=== PATIENT | female | born 1995 | race American Indian/Alaskan Native ===

== ENCOUNTER 2018-05-03 19:39 | Emergency (ER) | payer MEDICAID ==
[2018-05-03 20:21] VITALS: BP 127/72
[2018-05-03 21:01] LABS: Basophils % (Auto) 0.6 % (0.0-1.8); Eosinophils # (Auto) 0.1 K/mm3 (0.0-0.4); Eosinophils % (Auto) 1.5 % (0.0-4.3); Hematocrit 33.5 % (30.3-42.9); Hemoglobin 10.7 gm/dl (10.1-14.3); Lymphocytes # (Auto) 3.8 K/mm3 (1.2-5.4); Mean Corpuscular HGB Conc 32 % (30-34); Mean Corpuscular Volume 76 fl (79-97); Monocytes # (Auto) 0.5 K/mm3 (0.0-0.8); Monocytes % (Auto) 7.5 % (0.0-7.3); Platelet Count 360 K/mm3 (140-440); Red Blood Count 4.43 M/mm3 (3.65-5.03); Red Cell Distribution Width 16.5 % (13.2-15.2)
[2018-05-03 21:04] LABS: Mean Corpuscular Hemoglobin 24 pg (28-32)
--- NOTE | 2018-05-03 21:29 | Emergency Department Report ---
ED Female HPI - General Chief complaint: Vaginal Bleeding Stated complaint: POSSIBLE MISCARRIAGE Time Seen by Provider: 05/03/18 21:09 Source: patient Mode of arrival: Ambulatory Limitations: No Limitations - History of Present Illness Initial comments: Had a gush of vaginal blood 24 hours ago. has had RUQ abd pain and low bilateral back pain ever since. Hasn't had anymore vaginal bleeding. She called her PCP who told her to go to the ER b/c she could be . Pt hasn't taken a test yet. Currently on the depo shot. Has been once before and had successful term . - Related Data Home Medications Medication Instructions Recorded Confirmed Last Taken Pnv 29-1 Tablet 1 tab PO DAILY 01/16/18 01/17/18 1 Week Ago ~01/09/18 Previous Rx's Medication Instructions Recorded Last Taken Type Docusate Sodium [Colace] 100 mg PO BID PRN #60 capsule 01/18/18 Unknown Rx Ferrous Sulfate [Feosol 325 MG tab] 325 mg PO BID #60 tablet 01/18/18 Unknown Rx HYDROcodone/ACETAMINOPHEN [[place] 1 each PO Q6H #40 tablet 01/18/18 Unknown Rx 5-325 Tablet] Ibuprofen [Motrin] 600 mg PO Q8H PRN #40 tablet 01/18/18 Unknown Rx Allergies Allergy/AdvReac Type Severity Reaction Status Date / Time No Known Allergies Allergy Unverified 01/16/18 21:16 ED Review of Systems ROS: Stated complaint: POSSIBLE MISCARRIAGE Other details as noted in HPI Comment: All other systems reviewed and negative Gastrointestinal: abdominal pain, nausea Genitourinary: abnormal menses Musculoskeletal: back pain ED Past Medical Hx - Past Medical History Previous Medical History?: No Hx Hypertension: No Hx Congestive Heart Failure: No Hx Diabetes: No Hx Deep Vein Thrombosis: No Hx Renal Disease: No Hx Sickle Cell Disease: No Hx Seizures: No Hx Asthma: No Hx COPD: No Hx HIV: No - Surgical History Past Surgical History?: No - Social History Smoking Status: Never Smoker Substance Use Type: None - Medications Home Medications: Home Medications Medication Instructions Recorded Confirmed Last Taken Type Pnv 29-1 Tablet 1 tab PO DAILY 01/16/18 01/17/18 1 Week Ago History ~01/09/18 Docusate Sodium [Colace] 100 mg PO BID PRN #60 capsule 01/18/18 Unknown Rx Ferrous Sulfate [Feosol 325 MG tab] 325 mg PO BID #60 tablet 01/18/18 Unknown Rx HYDROcodone/ACETAMINOPHEN [[place] 1 each PO Q6H #40 tablet 01/18/18 Unknown Rx 5-325 Tablet] Ibuprofen [Motrin] 600 mg PO Q8H PRN #40 tablet 01/18/18 Unknown Rx ED Physical Exam - General Limitations: No Limitations General appearance: alert, in no apparent distress - Head Head exam: Present: atraumatic, normocephalic - Eye Eye exam: Present: normal appearance - ENT ENT exam: Present: mucous membranes moist - Neck Neck exam: Present: normal inspection - Respiratory Respiratory exam: Present: normal lung sounds bilaterally. Absent: respiratory distress - Cardiovascular Cardiovascular Exam: Present: regular rate, normal rhythm. Absent: systolic murmur, diastolic murmur, rubs, gallop - GI/Abdominal GI/Abdominal exam: Present: soft, tenderness (RUQ), guarding (voluntary), normal bowel sounds. Absent: rebound, rigid - Extremities Exam Extremities exam: Present: normal inspection - Back Exam Back exam: Present: normal inspection - Neurological Exam Neurological exam: Present: alert, oriented X3 - Psychiatric Psychiatric exam: Present: normal affect, normal mood - Skin Skin exam: Present: warm, dry, intact, normal color. Absent: rash ED Course Vital Signs 05/03/18 05/03/18 20:13 20:31 Temperature 98.3 F 98.3 F Pulse Rate 96 H 94 H Respiratory 18 18 Rate Blood Pressure 127/72 127/72 O2 Sat by Pulse 100 100 Oximetry ED Medical Decision Making - Lab Data Result diagrams: 05/03/18 20:41 05/03/18 20:41 - Radiology Data Radiology results: report reviewed - Medical Decision Making 22 yo female that p/w abd pain and concerns for vaginal bleeding. VSS. Pt is well appearing. test is neg. I don't believe that the patient was ever . Given no vaginal bleeding presently, pt wants to wait on the pelvic exam. I felt that this was appropriate since she is not having any vaginal discharge. Lab work and urinalysis are negative. Right upper quadrant ultrasound shows no acute abnormalities. Patient was given a GI cocktail, which resolved her symptoms. Presentation is likely related to GERD versus gastritis. Patient endorses eating a lot of spicy food. I discussed dietary changes with her. - Differential Diagnosis PE, cholecystitis, uti, pid, ectopic, iup, gerd, gastritis, hepatitis, pyel Critical care attestation.: If time is entered above; I have spent that time in minutes in the direct care of this critically ill patient, excluding procedure time. ED Disposition Clinical Impression: Gastritis Disposition: DC- TO HOME OR SELFCARE Is pt being admited?: No Does the pt Need Aspirin: No Condition: Stable Instructions: Gastritis (ED), Diet for Ulcers and Gastritis (ED) Additional Instructions: If you have this pain again, you can take Maalox, which is purchased over the counter, to see if it will stop your pain. If you have these episodes more than a couple of times a week, you should start taking a daily pepcid for acid reflux , which is also over the counter. Referrals: PRIMARY CARE, [Primary Care Provider] - 3-5 Days [facility] [Outside] - 3-5 Days
[2018-05-03 23:04] LABS: Alanine Aminotransferase 21 units/L (7-56); Albumin 4.6 g/dL (3.9-5); BUN/Creatinine Ratio 20; Blood Urea Nitrogen 12 mg/dL (7-17); Calcium 9.5 mg/dL (8.4-10.2); Hemolysis Index 14
[2018-05-03] MEDS ORDERED: ALUM-MAG HYDROX-SIMETH 200-200-20MG/5ML PO ONE (23:06)
[2018-05-03] MEDS ORDERED: LIDOCAINE VISCOUS 2% PO ONE (23:06)
[2018-05-03 23:16] LABS: Bilirubin,Urine NEG (Negative); Blood,Urine NEG (Negative); Color,Urine Yellow (Yellow); Mucus,Urine 3+ /HPF; Protein,Urine <15 mg/dL mg/dL (Negative); Urobilinogen,Urine < 2.0 mg/dL (<2.0)
--- NOTE | 2018-05-03 23:47 | Ultrasound Report ---
FINAL REPORT PROCEDURE: US ABDOMEN LIMITED TECHNIQUE: Real-time sonography was performed of the with image documentation. CPT 44832 HISTORY: RUQ abd pain, +murphys COMPARISON: No prior studies are available for comparison. FINDINGS: Visualized pancreatic head and body and liver demonstrate normal echotexture without focal lesions. Visualized right kidney is unremarkable and measures 9.5 by 4 x 5 centimeters demonstrating normal echotexture without hydronephrosis. Gallbladder is well distended with normal outlines are normal wall thickness without calculi or pericholecystic collections. Common duct is 4 millimeters in caliber. Portal vein is patent.. IMPRESSION: Unremarkable ultrasound right upper quadrant.
== END 2018-05-03 23:52 | disposition home or self-care (01) ==
LOC: ED 19:39
DX: K29.70 Gastritis, unspecified, without bleeding (principal)
CPT/HCPCS: 36415; 76705; 80053; 81001; 84702; 85025; 86850; 86900; 86901

== ENCOUNTER 2018-11-28 08:39 | Emergency (ER) | payer SELFPAY ==
--- NOTE | 2018-11-28 11:24 | Emergency Department Report ---
ED Female HPI - General Chief complaint: Urogenital-Female Stated complaint: VAGINAL IRRITATION Time Seen by Provider: 11/28/18 11:08 Source: patient Mode of arrival: Ambulatory Limitations: No Limitations - History of Present Illness Initial comments: 22-year-old female presents to ED with complaint of dysuria. Patient states 2 weeks ago she was seen in an outside ER for "vaginal irritation "and was diagnosed with Trichomonas and a bacterial infection. She states she took antibiotics for 7 days, which then lead to a yeast infection. She went back and was given medication for yeast infection, is now having dysuria. Patient reports small amount of discharge yesterday, however none today. She denies urinary frequency. Patient says she does not believe she was treated for gonorrhea and chlamydia to her previous ED visit. MD Complaint: dysuria -: days(s) (4) Radiation: non-radiating Severity: mild Quality: burning Consistency: intermittent Improves with: none Worsens with: urination Are you Now?: No - Related Data Home Medications Medication Instructions Recorded Confirmed Last Taken Pnv 29-1 Tablet 1 tab PO DAILY 01/16/18 01/17/18 1 Week Ago ~01/09/18 Previous Rx's Medication Instructions Recorded Last Taken Type Docusate Sodium [Colace] 100 mg PO BID PRN #60 capsule 01/18/18 Unknown Rx Ferrous Sulfate [Feosol 325 MG tab] 325 mg PO BID #60 tablet 01/18/18 Unknown Rx HYDROcodone/ACETAMINOPHEN [[place] 1 each PO Q6H #40 tablet 01/18/18 Unknown Rx 5-325 Tablet] Ibuprofen [Motrin] 600 mg PO Q8H PRN #40 tablet 01/18/18 Unknown Rx Allergies Allergy/AdvReac Type Severity Reaction Status Date / Time No Known Allergies Allergy Verified 11/28/18 08:41 ED Review of Systems ROS: Stated complaint: VAGINAL IRRITATION Other details as noted in HPI Comment: All other systems reviewed and negative Constitutional: denies: chills, fever Gastrointestinal: denies: abdominal pain Genitourinary: dysuria, discharge. denies: urgency, frequency, hematuria ED Past Medical Hx - Past Medical History Hx Hypertension: No Hx Congestive Heart Failure: No Hx Diabetes: No Hx Deep Vein Thrombosis: No Hx Renal Disease: No Hx Sickle Cell Disease: No Hx Seizures: No Hx Asthma: No Hx COPD: No Hx HIV: No - Social History Smoking Status: Never Smoker Substance Use Type: None - Medications Home Medications: Home Medications Medication Instructions Recorded Confirmed Last Taken Type Pnv 29-1 Tablet 1 tab PO DAILY 01/16/18 01/17/18 1 Week Ago History ~01/09/18 Docusate Sodium [Colace] 100 mg PO BID PRN #60 capsule 01/18/18 Unknown Rx Ferrous Sulfate [Feosol 325 MG tab] 325 mg PO BID #60 tablet 01/18/18 Unknown Rx HYDROcodone/ACETAMINOPHEN [[place] 1 each PO Q6H #40 tablet 01/18/18 Unknown Rx 5-325 Tablet] Ibuprofen [Motrin] 600 mg PO Q8H PRN #40 tablet 01/18/18 Unknown Rx ED Physical Exam - General Limitations: No Limitations General appearance: alert, in no apparent distress - Head Head exam: Present: atraumatic, normocephalic - Eye Eye exam: Present: normal appearance - ENT ENT exam: Present: mucous membranes moist - Neck Neck exam: Present: normal inspection - Respiratory Respiratory exam: Present: normal lung sounds bilaterally. Absent: respiratory distress - Cardiovascular Cardiovascular Exam: Present: regular rate, normal rhythm - GI/Abdominal GI/Abdominal exam: Present: soft. Absent: distended, tenderness - External exam: Present: normal external exam Speculum exam: Present: normal speculum exam. Absent: vaginal discharge, cervical discharge Bi-manual exam: Present: normal bi-manual exam. Absent: cervical motion tendernes - Extremities Exam Extremities exam: Present: normal inspection - Neurological Exam Neurological exam: Present: alert, oriented X3 - Psychiatric Psychiatric exam: Present: normal affect, normal mood - Skin Skin exam: Present: warm, dry, intact, normal color ED Course Vital Signs 11/28/18 08:59 Temperature 98.2 F Pulse Rate 88 Respiratory 14 Rate Blood Pressure 117/45 [Right] O2 Sat by Pulse 99 Oximetry ED Medical Decision Making - Medical Decision Making UA negative for UTI. Patient treated for BV last week. Wet prep shows > or =20% clue cells, but exam showed barely any discharge. Will not place pt on another 7-day course of flagyl, chandra since she then had to be treated for yeast infection afterward. Will treat empirically for GC/ Chlam. 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 - Differential Diagnosis GC, chlamydia, UTI Critical care attestation.: If time is entered above; I have spent that time in minutes in the direct care of this critically ill patient, excluding procedure time. ED Disposition Clinical Impression: Cervicitis Disposition: DC-01 TO HOME OR SELFCARE Is pt being admited?: No Condition: Stable Instructions: Cervicitis (ED) [facility]Primary Care Provider[facility] - 3-5 Days [facility] [Provider Group] - 3-5 Days Forms: STI Treatment and Prevention Time of Disposition: 12:43
[2018-11-28 12:41] LABS: Bilirubin,Urine NEG (Negative); Blood,Urine SM (Negative); Color,Urine Yellow (Yellow); Mucus,Urine 3+ /HPF; Protein,Urine <15 mg/dL mg/dL (Negative); Urobilinogen,Urine < 2.0 mg/dL (<2.0)
[2018-11-28] MEDS ORDERED: ROCEPHIN IM ONE (12:41)
[2018-11-28] MEDS ORDERED: ZITHROMAX PO ONE (12:41)
[2018-11-28] MEDS ORDERED: XYLOCAINE 1% MPF 5 mL INFILTRATI ONE (12:41)
[2018-11-28 12:43] LABS: HCG Qualitative,Urine Negative (Negative)
[2018-11-28] MEDS ORDERED: ZOFRAN ODT ONE (13:03)
[2018-11-28] MEDS ORDERED: ZOFRAN ODT PO ONE (13:10)
[2018-11-28 13:24] VITALS: BP 118/75
== END 2018-11-28 13:23 | disposition home or self-care (01) ==
LOC: ED 08:39
DX: N72 Inflammatory disease of cervix uteri (principal); A59.9 Trichomoniasis, unspecified
CPT/HCPCS: 81001; 81025; 87210; 87591; 96372; 99283; J0696; Q0162

== ENCOUNTER 2019-03-24 22:51 | Emergency (ER) | payer OTHER ==
--- NOTE | 2019-03-25 02:01 | Emergency Department Report ---
ED Female HPI - General Chief complaint: Urogenital-Female Stated complaint: VAGINAL IRRITATION Time Seen by Provider: 03/25/19 01:54 Source: patient Mode of arrival: Ambulatory Limitations: No Limitations - History of Present Illness Initial comments: pt is a 23 y/o aaf who presents for vaginal irritation x 1 week denies vaginal discharge no fever no chills no n/v . MD Complaint: dysuria, other (vaginal irritation) Onset/Timin -: days(s) (2) Radiation: non-radiating Severity: moderate Severity scale (0 -10): 3 Quality: cramping Consistency: intermittent Improves with: none Worsens with: none Are you Now?: Yes Last Menstrual Period: 02/19/19 EDC: 11/26/19 Associated Symptoms: abdominal pain, nausea/vomiting - Related Data Sexually active: Yes : 0 Para: 0 A: 0 Home Medications Medication Instructions Recorded Confirmed Last Taken Pnv 29-1 Tablet 1 tab PO DAILY 01/16/18 01/17/18 1 Week Ago ~01/09/18 Previous Rx's Medication Instructions Recorded Last Taken Type Docusate Sodium [Colace] 100 mg PO BID PRN #60 capsule 01/18/18 Unknown Rx Ferrous Sulfate [Feosol 325 MG tab] 325 mg PO BID #60 tablet 01/18/18 Unknown Rx HYDROcodone/ACETAMINOPHEN [[place] 1 each PO Q6H #40 tablet 01/18/18 Unknown Rx 5-325 Tablet] Ibuprofen [Motrin] 600 mg PO Q8H PRN #40 tablet 01/18/18 Unknown Rx metroNIDAZOLE [Flagyl] 500 mg PO Q12HR 10 Days #20 tab 03/25/19 Unknown Rx Allergies Allergy/AdvReac Type Severity Reaction Status Date / Time No Known Allergies Allergy Verified 11/28/18 08:41 ED Review of Systems ROS: Stated complaint: VAGINAL IRRITATION Other details as noted in HPI Constitutional: denies: chills, fever Eyes: denies: eye pain, eye discharge, vision change ENT: denies: ear pain, throat pain Respiratory: denies: cough, shortness of breath, wheezing Cardiovascular: denies: chest pain, palpitations Endocrine: no symptoms reported Gastrointestinal: denies: abdominal pain, nausea, diarrhea Genitourinary: urgency, discharge, abnormal menses. denies: dysuria, frequency, hematuria, dyspareunia Musculoskeletal: denies: back pain, joint swelling, arthralgia, myalgia Skin: denies: rash, lesions Neurological: denies: headache, weakness, paresthesias, vertigo Psychiatric: denies: anxiety, depression Hematological/Lymphatic: denies: easy bleeding, easy bruising ED Past Medical Hx - Past Medical History Previous Medical History?: No Hx Hypertension: No Hx Congestive Heart Failure: No Hx Diabetes: No Hx Deep Vein Thrombosis: No Hx Renal Disease: No Hx Sickle Cell Disease: No Hx Seizures: No Hx Asthma: No Hx COPD: No Hx HIV: No - Surgical History Past Surgical History?: No - Social History Smoking Status: Never Smoker Substance Use Type: None - Medications Home Medications: Home Medications Medication Instructions Recorded Confirmed Last Taken Type Pnv 29-1 Tablet 1 tab PO DAILY 01/16/18 01/17/18 1 Week Ago History ~01/09/18 Docusate Sodium [Colace] 100 mg PO BID PRN #60 capsule 01/18/18 Unknown Rx Ferrous Sulfate [Feosol 325 MG tab] 325 mg PO BID #60 tablet 01/18/18 Unknown Rx HYDROcodone/ACETAMINOPHEN [[place] 1 each PO Q6H #40 tablet 01/18/18 Unknown Rx 5-325 Tablet] Ibuprofen [Motrin] 600 mg PO Q8H PRN #40 tablet 01/18/18 Unknown Rx metroNIDAZOLE [Flagyl] 500 mg PO Q12HR 10 Days #20 tab 03/25/19 Unknown Rx ED Physical Exam - General Limitations: No Limitations General appearance: alert, in no apparent distress - Head Head exam: Present: atraumatic, normocephalic - Eye Eye exam: Present: normal appearance, PERRL, EOMI Pupils: Present: normal accommodation - ENT ENT exam: Present: mucous membranes moist - Neck Neck exam: Present: normal inspection, full ROM - Respiratory Respiratory exam: Present: normal lung sounds bilaterally, wheezes, chest wall tenderness. Absent: respiratory distress - Cardiovascular Cardiovascular Exam: Present: regular rate, normal rhythm, normal heart sounds. Absent: systolic murmur, diastolic murmur, rubs, gallop - GI/Abdominal GI/Abdominal exam: Present: soft, normal bowel sounds. Absent: distended, tenderness, guarding, rebound, rigid, bruit, hernia - Rectal Rectal exam: Present: deferred - External exam: Present: normal external exam. Absent: erythema, swelling, lesions, lacerations, ecchymosis, bleeding Speculum exam: Present: erythema, vaginal discharge (white thick malodorous ). Absent: cervical discharge, vaginal bleeding, foreign body, tissue, laceration - Extremities Exam Extremities exam: Present: normal inspection, full ROM, normal capillary refill. Absent: tenderness, pedal edema, joint swelling, calf tenderness - Back Exam Back exam: Present: normal inspection. Absent: full ROM, tenderness, CVA tenderness (R), CVA tenderness (L), muscle spasm, paraspinal tenderness, vertebral tenderness, rash noted - Neurological Exam Neurological exam: Present: alert, oriented X3, CN II-XII intact, normal gait, reflexes normal - Psychiatric Psychiatric exam: Present: normal affect, normal mood - Skin Skin exam: Present: warm, dry, intact, normal color. 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 Critical care attestation.: If time is entered above; I have spent that time in minutes in the direct care of this critically ill patient, excluding procedure time. ED Disposition Clinical Impression: Bacterial vaginosis Disposition: DC-01 TO HOME OR SELFCARE Is pt being admited?: No Does the pt Need Aspirin: No Condition: Stable Instructions: Bacterial Vaginosis (ED) Prescriptions: metroNIDAZOLE [Flagyl] 500 mg PO Q12HR 10 Days #20 tab Referrals: NASIM KHALIL MD [Staff Physician] - 3-5 Days Forms: Work/School Release Form(ED) Time of Disposition: 03:14
[2019-03-25 02:48] VITALS: BP 115/88
[2019-03-25 03:13] LABS: Bacteria,Urine 1+ /HPF (Negative); Bilirubin,Urine NEG (Negative); Blood,Urine NEG (Negative); Color,Urine Straw (Yellow); Mucus,Urine FEW /HPF; Protein,Urine <15 mg/dL mg/dL (Negative); RBC,Urine < 1.0 /HPF (0.0-6.0); Urobilinogen,Urine < 2.0 mg/dL (<2.0)
[2019-03-25 03:19] LABS: HCG Qualitative,Urine Negative (Negative)
== END 2019-03-25 03:35 | disposition home or self-care (01) ==
LOC: ED 22:51
DX: N76.0 Acute vaginitis (principal); B96.89 Other specified bacterial agents as the cause of diseases classified elsewhere
CPT/HCPCS: 81001; 81025; 87210

== ENCOUNTER 2020-07-01 12:32 | Emergency (ER) | payer SELFPAY ==
[2020-07-01 13:22] LABS: HCG Qualitative,Urine Positive (Negative)
[2020-07-01 13:35] LABS: Bacteria,Urine 1+ /HPF (Negative); Bilirubin,Urine NEG (Negative); Blood,Urine NEG (Negative); Color,Urine Yellow (Yellow); Mucus,Urine 2+ /HPF; Protein,Urine <15 mg/dL mg/dL (Negative)
[2020-07-01] MEDS ORDERED: ACETAMINOPHEN 500 MG TAB PO ONE (15:09)
[2020-07-01 15:31] LABS: Basophils # (Auto) 0.1 K/mm3 (0.0-0.1); Basophils % (Auto) 0.8 % (0.0-1.8); Eosinophils # (Auto) 0.1 K/mm3 (0.0-0.4); Eosinophils % (Auto) 0.8 % (0.0-4.3); Hematocrit 33.3 % (30.3-42.9); Hemoglobin 11.3 gm/dl (10.1-14.3); Lymphocytes # (Auto) 1.9 K/mm3 (1.2-5.4); Lymphocytes % (Auto) 27.1 % (13.4-35.0); Mean Corpuscular HGB Conc 34 % (30-34); Mean Corpuscular Volume 87 fl (79-97); Monocytes # (Auto) 0.5 K/mm3 (0.0-0.8); Monocytes % (Auto) 6.7 % (0.0-7.3); Platelet Count 254 K/mm3 (140-440); Red Blood Count 3.83 M/mm3 (3.65-5.03); Red Cell Distribution Width 12.7 % (13.2-15.2)
[2020-07-01 15:49] LABS: Blood Urea Nitrogen 8 mg/dL (7-17); Calcium 9.4 mg/dL (8.4-10.2); Hemolysis Index 66
[2020-07-01 15:56] LABS: BUN/Creatinine Ratio 20
--- NOTE | 2020-07-01 16:33 | Emergency Department Report ---
ED HPI - General Chief complaint: Abdominal Pain Stated complaint: 9WEKKS PREG BLEEDING Time Seen by Provider: 07/01/20 14:59 Source: patient Mode of arrival: Ambulatory Limitations: No Limitations - History of Present Illness Initial comments: This is a 24-year-old female nontoxic, well nourished in appearance, no acute signs of distress presents to the ED with c/o of pelvic pain and flank pain x several days. Patient stated is about 9 weeks . Denies any vaginal bleeding. Patient denies any vaginal bleeding, nausea or vomiting. Patient describes pelvic pain as cramping and aching with level of 3/10 diffuse. Patient denies chest pain, short of breath, fever, hemoptysis, blood in stool, chills, headache, stiff neck, numbness or tingling. Patient denies any diarrhea or constipation. Denies any blood in stool. Patient denies any recent travels. Patient denies any allergies or PMH. -: days(s) Location: pelvis, flank Radiation: none Severity: mild Severity scale (0 -10): 3 Quality: cramping, aching Consistency: intermittent Improves with: none Worsens with: none Associated symptoms: denies other symptoms. denies: nausea/vomiting, vaginal bleeding, vaginal discharge, abdominal pain, dysuria, headache, vision changes, malaise, dysparuenia, rash, seizure, shortness of breath, syncope, weakness Vaginal bleeding: none :: Yes Number of weeks : 9 Pre- care: none - Related Data Home Medications Medication Instructions Recorded Confirmed Last Taken Pnv 29-1 Tablet 1 tab PO DAILY 01/16/18 01/17/18 1 Week Ago ~01/09/18 Previous Rx's Medication Instructions Recorded Last Taken Type Docusate Sodium [Colace] 100 mg PO BID PRN #60 capsule 01/18/18 Unknown Rx Ferrous Sulfate [Feosol 325 MG tab] 325 mg PO BID #60 tablet 01/18/18 Unknown Rx HYDROcodone/ACETAMINOPHEN [[place] 1 each PO Q6H #40 tablet 01/18/18 Unknown Rx 5-325 Tablet] Ibuprofen [Motrin] 600 mg PO Q8H PRN #40 tablet 01/18/18 Unknown Rx metroNIDAZOLE [Flagyl] 500 mg PO Q12HR 10 Days #20 tab 03/25/19 Unknown Rx Acetaminophen [Acetaminophen 8 650 mg PO Q8H PRN #12 tablet.er 07/01/20 Unknown Rx Hour] Allergies Allergy/AdvReac Type Severity Reaction Status Date / Time No Known Allergies Allergy Verified 11/28/18 08:41 ED Review of Systems ROS: Stated complaint: 9WEKKS PREG BLEEDING Other details as noted in HPI Constitutional: denies: chills, fever Eyes: denies: eye pain, eye discharge, vision change ENT: denies: ear pain, throat pain Respiratory: denies: cough, shortness of breath, wheezing Cardiovascular: denies: chest pain, palpitations Endocrine: no symptoms reported Gastrointestinal: other (flank pain). denies: abdominal pain, nausea, vomiting, diarrhea, constipation, hematemesis, melena, hematochezia Genitourinary: other (pelvic pain). denies: urgency, dysuria, frequency, hematuria, discharge, abnormal menses, dyspareunia Musculoskeletal: denies: back pain, joint swelling, arthralgia Skin: denies: rash, lesions Neurological: denies: headache, weakness, paresthesias Psychiatric: denies: anxiety, depression Hematological/Lymphatic: denies: easy bleeding, easy bruising ED Past Medical Hx - Past Medical History Hx Hypertension: No Hx Congestive Heart Failure: No Hx Diabetes: No Hx Deep Vein Thrombosis: No Hx Renal Disease: No Hx Sickle Cell Disease: No Hx Seizures: No Hx Asthma: No Hx COPD: No Hx HIV: No - Surgical History Past Surgical History?: No - Social History Smoking Status: Never Smoker Substance Use Type: None - Medications Home Medications: Home Medications Medication Instructions Recorded Confirmed Last Taken Type Pnv 29-1 Tablet 1 tab PO DAILY 01/16/18 01/17/18 1 Week Ago History ~01/09/18 Docusate Sodium [Colace] 100 mg PO BID PRN #60 capsule 01/18/18 Unknown Rx Ferrous Sulfate [Feosol 325 MG tab] 325 mg PO BID #60 tablet 01/18/18 Unknown Rx HYDROcodone/ACETAMINOPHEN [[place] 1 each PO Q6H #40 tablet 01/18/18 Unknown Rx 5-325 Tablet] Ibuprofen [Motrin] 600 mg PO Q8H PRN #40 tablet 01/18/18 Unknown Rx metroNIDAZOLE [Flagyl] 500 mg PO Q12HR 10 Days #20 tab 03/25/19 Unknown Rx Acetaminophen [Acetaminophen 8 650 mg PO Q8H PRN #12 tablet.er 07/01/20 Unknown Rx Hour] ED Physical Exam - General Limitations: No Limitations General appearance: alert, in no apparent distress - Head Head exam: Present: atraumatic, normocephalic - Eye Eye exam: Present: normal appearance - Neck Neck exam: Present: normal inspection, full ROM. Absent: tenderness, meningismus, lymphadenopathy - Respiratory Respiratory exam: Present: normal lung sounds bilaterally. Absent: respiratory distress, wheezes, rales, rhonchi, stridor, chest wall tenderness, accessory muscle use, decreased breath sounds, prolonged expiratory - Cardiovascular Cardiovascular Exam: Present: regular rate, normal rhythm, normal heart sounds. Absent: irregular rhythm, systolic murmur, diastolic murmur, rubs, gallop - GI/Abdominal GI/Abdominal exam: Present: soft, normal bowel sounds. Absent: distended, tenderness, guarding, rebound, rigid, diminished bowel sounds - Extremities Exam Extremities exam: Present: normal inspection, full ROM - Back Exam Back exam: Present: normal inspection, full ROM. Absent: tenderness, CVA tenderness (R), CVA tenderness (L), muscle spasm, paraspinal tenderness, vertebral tenderness, rash noted - Neurological Exam Neurological exam: Present: alert, oriented X3, normal gait - Psychiatric Psychiatric exam: Present: normal affect, normal mood - Skin Skin exam: Present: warm, dry, intact, normal color. Absent: rash ED Course Vital Signs 07/01/20 12:37 Temperature 97.8 F Pulse Rate 101 H Respiratory 16 Rate Blood Pressure 98/62 O2 Sat by Pulse 98 Oximetry - Reevaluation(s) Reevaluation #1: 07/01/20 16:32 Patient is speaking in full sentences with no signs of distress noted. ED Medical Decision Making - Lab Data Result diagrams: 07/01/20 15:15 07/01/20 15:15 Lab Results 07/01/20 07/01/20 07/01/20 Range/Units 13:04 15:15 15:15 WBC 7.1 (4.5-11.0) K/mm3 RBC 3.83 (3.65-5.03) M/mm3 Hgb 11.3 (10.1-14.3) gm/dl Hct 33.3 (30.3-42.9) % MCV 87 (79-97) fl MCH 30 (28-32) pg MCHC 34 (30-34) % RDW 12.7 L (13.2-15.2) % Plt Count 254 (140-440) K/mm3 Lymph % (Auto) 27.1 (13.4-35.0) % [place] % (Auto) 6.7 (0.0-7.3) % Eos % (Auto) 0.8 (0.0-4.3) % Baso % (Auto) 0.8 (0.0-1.8) % Lymph # (Auto) 1.9 (1.2-5.4) K/mm3 [place] # (Auto) 0.5 (0.0-0.8) K/mm3 Eos # (Auto) 0.1 (0.0-0.4) K/mm3 Baso # (Auto) 0.1 (0.0-0.1) K/mm3 Seg Neutrophils % 64.6 (40.0-70.0) % Seg Neutrophils # 4.6 (1.8-7.7) K/mm3 Sodium 136 L (137-145) mmol/L Potassium 3.7 (3.6-5.0) mmol/L Chloride 98.9 (98-107) mmol/L Carbon Dioxide 23 (22-30) mmol/L Anion Gap 18 mmol/L BUN 8 (7-17) mg/dL Creatinine 0.4 L (0.6-1.2) mg/dL Estimated GFR > 60 ml/min BUN/Creatinine Ratio 20 % Glucose 77 (65-100) mg/dL Calcium 9.4 (8.4-10.2) mg/dL HCG, Quant (0-4) mIU/mL Urine Color Yellow (Yellow) Urine Turbidity Slightly-cloudy (Clear) Urine pH 7.0 (5.0-7.0) Ur Specific [place] 1.014 (1.003-1.030) Urine Protein <15 mg/dl (Negative) mg/dL Urine Glucose (UA) Neg (Negative) mg/dL Urine Ketones Tr (Negative) mg/dL Urine Blood Neg (Negative) Urine Nitrite Neg (Negative) Ur Reducing Substances Not Reportable Urine Bilirubin Neg (Negative) Urine Ictotest Not Reportable Urine Urobilinogen 4.0 (<2.0) mg/dL Ur Leukocyte Esterase Mod (Negative) Urine WBC (Auto) 1.0 (0.0-6.0) /HPF Urine RBC (Auto) 4.0 (0.0-6.0) /HPF U Epithel Cells (Auto) 8.0 (0-13.0) /HPF Urine Bacteria (Auto) 1+ (Negative) /HPF Urine Mucus 2+ /HPF Urine HCG, Qual Positive A (Negative) 07/01/20 Range/Units 15:15 WBC (4.5-11.0) K/mm3 RBC (3.65-5.03) M/mm3 Hgb (10.1-14.3) gm/dl Hct (30.3-42.9) % MCV (79-97) fl MCH (28-32) pg MCHC (30-34) % RDW (13.2-15.2) % Plt Count (140-440) K/mm3 Lymph % (Auto) (13.4-35.0) % [place] % (Auto) (0.0-7.3) % Eos % (Auto) (0.0-4.3) % Baso % (Auto) (0.0-1.8) % Lymph # (Auto) (1.2-5.4) K/mm3 [place] # (Auto) (0.0-0.8) K/mm3 Eos # (Auto) (0.0-0.4) K/mm3 Baso # (Auto) (0.0-0.1) K/mm3 Seg Neutrophils % (40.0-70.0) % Seg Neutrophils # (1.8-7.7) K/mm3 Sodium (137-145) mmol/L Potassium (3.6-5.0) mmol/L Chloride (98-107) mmol/L Carbon Dioxide (22-30) mmol/L Anion Gap mmol/L BUN (7-17) mg/dL Creatinine (0.6-1.2) mg/dL Estimated GFR ml/min BUN/Creatinine Ratio % Glucose (65-100) mg/dL Calcium (8.4-10.2) mg/dL HCG, Quant [id number] H (0-4) mIU/mL Urine Color (Yellow) Urine Turbidity (Clear) Urine pH (5.0-7.0) Ur Specific [place] (1.003-1.030) Urine Protein (Negative) mg/dL Urine Glucose (UA) (Negative) mg/dL Urine Ketones (Negative) mg/dL Urine Blood (Negative) Urine Nitrite (Negative) Ur Reducing Substances Urine Bilirubin (Negative) Urine Ictotest Urine Urobilinogen (<2.0) mg/dL Ur Leukocyte Esterase (Negative) Urine WBC (Auto) (0.0-6.0) /HPF Urine RBC (Auto) (0.0-6.0) /HPF U Epithel Cells (Auto) (0-13.0) /HPF Urine Bacteria (Auto) (Negative) /HPF Urine Mucus /HPF Urine HCG, Qual (Negative) - Radiology Data Referring Physician: ZANE WOOD Patient Name: BETI CALLE Date of : 1995 Sex: Female Report Date: 2020-07-01 Report Status: Finalized [facility] [address] [place] [address] Ultrasound Report Signed Patient: BETI CALLE MR#: [id number] : 1995 Acct:[id number] Age/Sex: 24 / F ADM Date: 07/01/20 Loc: ED Attending Dr: Ordering Physician: ZANE WOOD NP Date of Service: 07/01/20 Procedure(s): US OB <= 14 weeks fetus Accession Number(s): [id number] cc: ZANE WOOD NP US OB <= 14 weeks fetus INDICATION / CLINICAL INFORMATION: left pelvic pain. COMPARISON: None available. FINDINGS: Single, viable intrauterine . heart rate 173. [place]-rump length measures 2.7 cm, corresponding to a gestational age of 9 weeks 4 days. Ovaries are normal. No free fluid. IMPRESSION: 1. Viable 9 week 4 day intrauterine . Signer Name: Khanh Laura MD Signed: 07/01/2020 5:59 PM Workstation Name: [id number] Transcribed By: TM Dictated By: Khanh Laura MD Electronically Authenticated By: Khanh Laura MD Signed Date/Time: 07/01/201758 DD/ 55 TD/TT: - Medical Decision Making This is a 24-year-old female that presents with pelvic pain during . Patient is stable and was examined by me. There is no abdominal tenderness. Negative signs of symptoms of appendicitis. Labs obtained. UA obtained. OB US obtained and dictated by the radiologist. Patient is notified of the report with no questions noted by the patient. Vital signs are stable prior to discharge. Patient received medical treatment in the ED which patient stated symptoms has resovled and subsided. Patient was also instructed to Follow-up with a OBGYN doctor in 3-5 days or if symptoms worsen and continue return to emergency room as soon as possible. At time of discharge, the patient does not seem toxic or ill in appearance. No acute signs of distress noted. Patient agrees to discharge treatment plan of care. No further questions noted by the patient. Critical care attestation.: If time is entered above; I have spent that time in minutes in the direct care of this critically ill patient, excluding procedure time. ED Disposition Clinical Impression: Pelvic pain during Disposition: DC-01 TO HOME OR SELFCARE Is pt being admited?: No Does the pt Need Aspirin: No Condition: Stable Instructions: (ED) Additional Instructions: Follow-up with a OBGYN doctor in 3-5 days or if symptoms worsen and continue return to emergency room as soon as possible. Prescriptions: Acetaminophen [Acetaminophen 8 Hour] 650 mg PO Q8H PRN #12 tablet.er PRN Reason: Pain , Severe (7-10) Referrals: PRIMARY CARE, [Primary Care Provider] - 3-5 Days [facility] [Provider Group] - 3-5 Days [facility] [Provider Group] - 3-5 Days Forms: Work/School Release Form(ED)
--- NOTE | 2020-07-01 18:03 | Ultrasound Report ---
US OB <= 14 weeks fetus INDICATION / CLINICAL INFORMATION: left pelvic pain. COMPARISON: None available. FINDINGS: Single, viable intrauterine . heart rate 173. [place]-rump length measures 2.7 cm, corresponding to a gestational age of 9 weeks 4 days. Ovaries are normal. No free fluid. IMPRESSION: 1. Viable 9 week 4 day intrauterine . Signer Name: Khanh Laura MD Signed: 07/01/2020 5:59 PM Workstation Name: [id number]
[2020-07-01 18:13] VITALS: BP 112/62
== END 2020-07-01 18:18 | disposition home or self-care (01) ==
LOC: ED 12:32
DX: O26.891 Other specified pregnancy related conditions, first trimester (principal); R10.2 Pelvic and perineal pain; R10.9 Unspecified abdominal pain; Z3A.09 9 weeks gestation of pregnancy
CPT/HCPCS: 36415; 76801; 80048; 81001; 81025; 84702; 85025

== ENCOUNTER 2020-09-28 15:37 | Emergency (ER) | payer SELFPAY ==
[2020-09-28 15:47] VITALS: BP 99/57
== END 2020-09-28 16:00 | disposition left against medical advice (07) ==
LOC: ED 15:37
DX: R07.9 Chest pain, unspecified (principal); Z53.21 Procedure and treatment not carried out due to patient leaving prior to being seen by health care provider
CPT/HCPCS: 93005

== ENCOUNTER 2020-10-20 22:55 | Emergency (ER) | payer MEDICAID ==
[2020-10-20 23:17] VITALS: BP 99/55
--- NOTE | 2020-10-20 23:24 | Emergency Department Report ---
Chief Complaint: Urogenital-Female Stated Complaint: VAGINAL DISCHARGE - HPI History of Present Illness: 24-year-old -Citizen Of [place] female who reports she is 29 weeks comes in for vaginal irritation. Patient states is been going on for 2 days. Patient does have a SENIOR TECHNICAL PROJECT MANAGER. Patient denies any pelvic pain no dysuria no vaginal bleeding. - Exam Vital Signs: Vital Signs 10/20/20 23:15 Temperature 97.9 F Pulse Rate 89 Respiratory 17 Rate Blood Pressure 99/55 O2 Sat by Pulse 98 Oximetry Physical Exam: Patient is alert and oriented x3 no acute distress nontoxic in appearance Nonlabored breathing Cardiac regular rate and rhythm Abdomen soft pelvic referral with baby. Patient is ambulatory without difficulties MSE screening note: Focused history and physical exam performed. Due to findings the following was ordered: 24-year-old -Citizen Of [place] female who reports she is 29 weeks comes in for vaginal irritation. Patient states is been going on for 2 days. Patient does have a SENIOR TECHNICAL PROJECT MANAGER. Patient denies any pelvic pain no dysuria no vaginal bleeding. Patient's vital signs are stable. She does have a SENIOR TECHNICAL PROJECT MANAGER Dr. Susu Sifuentes ED Disposition for [facility] Disposition: - MED SCREENING EXAM-LEFT Is pt being admited?: No Does the pt Need Aspirin: No Condition: Stable Additional Instructions: Please call your SENIOR TECHNICAL PROJECT MANAGER first thing in the morning to make an appointment. Referrals: LENNY SIFUENTES MD [Staff Physician] - 3-5 Days
== END 2020-10-20 23:25 | disposition left against medical advice (07) ==
LOC: ED 22:55
DX: O26.893 Other specified pregnancy related conditions, third trimester (principal); R10.2 Pelvic and perineal pain; Z53.21 Procedure and treatment not carried out due to patient leaving prior to being seen by health care provider; Z3A.29 29 weeks gestation of pregnancy

== ENCOUNTER 2021-01-28 18:30 | Inpatient (IN) | payer MEDICAID ==
[2021-01-28] MEDS ORDERED: LACTATED RINGERS 1,000 ML IV SCH (20:15)
[2021-01-28 21:03] LABS: Hemoglobin 10.8 gm/dl (10.1-14.3); Mean Corpuscular HGB Conc 35 % (30-34); Mean Corpuscular Volume 87 fl (79-97); Platelet Count 204 K/mm3 (140-440); Red Blood Count 3.58 M/mm3 (3.65-5.03)
[2021-01-29] MEDS ORDERED: MINERAL OIL 30 ML ORAL LIQD PO PRN (00:48)
[2021-01-29] MEDS ORDERED: ONDANSETRON 4 MG/2 ML INJ IV PRN ×2 (00:48→12:00)
[2021-01-29] MEDS ORDERED: ePHEDrine SULFATE 50 MG/1 ML INJ IV PRN ×2 (00:48→01:19)
[2021-01-29] MEDS ORDERED: BUTORPHANOL 2 MG/1 ML INJ IV PRN (00:48)
[2021-01-29] MEDS ORDERED: LIDOCAINE (2%) 20 MG/1 ML VIAL 20 ML MDV INFILTRATI ONE (00:48)
[2021-01-29] MEDS ORDERED: TERBUTALINE 1 MG/1 ML INJ SUB-Q PRN (00:48)
[2021-01-29] MEDS ORDERED: LACTATED RINGERS 1,000 ML IV SCH (01:00)
[2021-01-29] MEDS ORDERED: OXYTOCIN DRIP 30 UNITS/500 ML BAG IV SCH ×2 (01:00)
[2021-01-29] MEDS ORDERED: NALOXONE 2 MG/2 ML INJ IV PRN (01:19)
--- NOTE | 2021-01-29 01:19 | Progress Note ---
Labor Epidural - Labor Epidural Start Time: :26 Stop Time: :34 Performed by:: COLBY BELTRAN Procedure: Patient is requesting a laboring epidural for laboring pain. Patient IDed, H&P reviewed, all questions and concerns were answered, and consent was signed. Timeout was performed at bedside. Patient in sitting position. Sterile prep and drape was performed. [3] ml of 1% lidocaine skin wheal at L[3]- L [4]. 18- gauge Tuohy epidural needle was advanced to loss of resistance with saline technique 6cm. Negative CSF negative blood. Epidural catheter advanced to [10] centimeters. [NEGATIVE] Aspiration [NEGATIVE] test dose. Sterile dressing applied. Patient tolerated procedure.
--- NOTE | 2021-01-29 01:19 | Anesthesia Consultation ---
Anesthesia Consult and Med Hx Date of service: 01/29/21 - Airway Anesthetic Teeth Evaluation: Good ROM Head & Neck: Adequate Mental/Hyoid Distance: Adequate Mallampati Class: Class II Intubation Access Assessment: Good - Pulmonary Exam CTA: Yes - Cardiac Exam Cardiac Exam: RRR - Pre-Operative Health Status ASA Pre-Surgery Classification: ASA2 Proposed Anesthetic Plan: Epidural - Pulmonary Hx Smoking: No Hx Asthma: No Hx Respiratory Symptoms: No SOB: No COPD: No Home Oxygen Therapy: No Hx Pneumonia: No Hx Sleep Apnea: No - Cardiovascular System Hx Hypertension: No Hx Coronary Artery Disease: No Hx Heart Attack/AMI: No Hx Angina: No Hx Percutaneous Transluminal Coronary Angioplasty (PTCA): No Hx Cardia Arrhythmia: No Hx Pacemaker: No Hx Internal Defibrillator: No Hx Valvular Heart Disease: No Hx Heart Murmur: No Hx Peripheral Vascular Disease: No - Central Nervous System Hx Neuromuscular Disorder: Yes (Scoliosis) Hx Seizures: No CVA: No Hx Back Pain: Yes Hx Psychiatric Problems: No - Gastrointestinal Hx Ulcer: No Hx Gastroesophageal Reflux Disease: Yes - Endocrine Hx Renal Disease: No Hx End Stage Renal Disease: No Hx Cirrhosis: No Hx Liver Disease: No Hx Insulin Dependent Diabetes: No Hx Non-Insulin Dependent Diabetes: No Hx Thyroid Disease: No Hx Hypothyroidism: No Hx Hyperthyroidism: No - Hematic Hx Anemia: No Hx Sickle Cell Disease: No - Other Systems Hx Alcohol Use: No Hx Substance Use: No Hx Cancer: No Hx Obesity: No
[2021-01-29] MEDS ORDERED: fentaNYL-BUPIV 2 MCG/ML-0.125% 200 MCG/100 ML BAG EPIDURAL SCH (02:00)
--- NOTE | 2021-01-29 08:10 | History and Physical Report ---
History of Present Illness Date of examination: 01/29/21 Date of admission: 01/28/21 20:07 Chief complaint: I am having bleeding History of present illness: Patient is a 25-year-old 2 para 1 who presents with a complaint of bleeding at 39-5/7 weeks. She entered care with just few months of care at 11 weeks and 6 days however she did have some sent lapse in care due to family issues however her course has been overall uncomplicated. She is GBS negative all of her labs are negative as well she is rubella immune. Past History Past Medical History: no pertinent history Past Surgical History: no surgical history Family/Genetic History: none Social history: single - Obstetrical History Expected Date of Delivery: 01/30/21 Actual Gestation: 39 Week(s) 6 Day(s) : 2 Para: 1 Number of Living Children: 1 Medications and Allergies Allergies Allergy/AdvReac Type Severity Reaction Status Date / Time No Known Allergies Allergy Verified 11/28/18 08:41 Home Medications Medication Instructions Recorded Confirmed Last Taken Type Pnv 29-1 Tablet 1 tab PO DAILY 01/16/18 01/17/18 1 Week Ago History ~01/09/18 Docusate Sodium [Colace] 100 mg PO BID PRN #60 capsule 01/18/18 Unknown Rx Ferrous Sulfate [Feosol 325 MG tab] 325 mg PO BID #60 tablet 01/18/18 Unknown Rx HYDROcodone/ACETAMINOPHEN [[place] 1 each PO Q6H #40 tablet 01/18/18 Unknown Rx 5-325 Tablet] Ibuprofen [Motrin] 600 mg PO Q8H PRN #40 tablet 01/18/18 Unknown Rx metroNIDAZOLE [Flagyl] 500 mg PO Q12HR 10 Days #20 tab 03/25/19 Unknown Rx Acetaminophen [Acetaminophen 8 650 mg PO Q8H PRN #12 tablet.er 07/01/20 Unknown Rx Hour] Active Meds: Active Medications Butorphanol Tartrate (Butorphanol 2 Mg/1 Ml Inj) 2 mg IV Q2H PRN PRN Reason: Pain , Severe (7-10) Ephedrine Sulfate (Ephedrine Sulfate 50 Mg/1 Ml Inj) 10 mg IV Q2M PRN PRN Reason: Hypotension Oxytocin/Sodium Chloride (Pitocin/Ns 30 Unit/500ml) 30 units in 500 mls @ 2 mls/hr IV TITR [facility]; Protocol Last Admin: 01/29/21 03:15 Dose: 2 ml/hr, 2 mls/hr Documented by: Lactated Ringer's (Lactated Ringers) 1,000 mls @ 125 mls/hr IV DIRECT [facility] Oxytocin/Sodium Chloride (Pitocin/Ns 30 Unit/500ml) 30 units in 500 mls @ 40 mls/hr IV TITR [facility]; Protocol Fentanyl/Bupivacaine/Sodium Chlor (Fentanyl-Bupiv 2 Mcg/Ml-0.125%) 200 mcg in 100 mls @ 12 mls/hr EPIDURAL TITR [facility]; Protocol Last Admin: 01/29/21 03:00 Dose: 12 mls/hr Documented by: Mineral Oil (Mineral Oil 30 Ml Oral Liqd) 30 ml PO QHS PRN PRN Reason: Constipation Naloxone HCl (Naloxone 2 Mg/2 Ml Inj) 0.2 mg IV Q5M PRN PRN Reason: Respiratory sedation Ondansetron HCl (Ondansetron 4 Mg/2 Ml Inj) 4 mg IV Q8H PRN PRN Reason: Nausea And Vomiting Terbutaline Sulfate (Terbutaline 1 Mg/1 Ml Inj) 0.25 mg SUB-Q ONCE PRN PRN Reason: Hyperstimulation/Hypertonicity Review of Systems All systems: negative Genitourinary: vaginal bleeding, contractions Rectal Exam: deferred - Vital Signs Vital signs: Vital Signs Pulse Pulse Ox 75 99 01/29/21 01:20 01/29/21 01:20 Temp Pulse Resp BP Pulse Ox 69 112/68 100 01/29/21 08:06 01/29/21 08:06 01/29/21 08:05 - Physical Exam Breasts: Positive: deferred Cardiovascular: Regular rate, Normal S1, Normal S2 Lungs: Positive: Clear to auscultation, Normal air movement Abdomen: Positive: normal appearance, soft, normal bowel sounds. Negative: distention, tenderness Genitourinary (Female): Positive: normal external genitalia, normal perenium Vulva: both: normal Vagina: Positive: normal moisture. Negative: discharge Uterus: Positive: normal size, normal contour Adnexa: both: normal Anus/Rectum: Positive: normal perianal skin, heme negative. Negative: rectal m ass, hemorrhoids Extremities: Deep Tendon Reflex Grade: Normal +2 - Obstetrical FHR: auscultation normal Cervical Dilatation: 4 Cervical Effacement Percentage: 70 station: -2 Uterine Contraction Pattern: Regular Uterine Tone Measurement Phase: Contraction Uterine Contraction Intensity: Moderate Results Result Diagrams: 01/28/21 20:30 Abnormal lab results 01/28/21 01/28/21 Range/Units 20:30 20:30 RBC 3.58 L (3.65-5.03) M/mm3 MCHC 35 H (30-34) % Syphilis IgG Antibody Reactive A (NonReactive) All other labs normal. Assessment and Plan IUP at 39.6 weeks in labor with complaint of bleeding. Admit to L&D. Augment with pitocin. AROM if needed. Anticipate .
--- NOTE | 2021-01-29 08:18 | Procedure Note ---
OB Delivery Note - Delivery Date of Delivery: 01/29/21 Surgeon: LENNY CHAMPAGNE Estimated blood loss: other (250cc) - Vaginal Delivery presentation: vertex Delivery position: OA Intrapartum events: none Delivery induction: none Delivery augmentation: pitocin Delivery monitor: external FHT, external uterine Route of delivery: Delivery placenta: spontaneous Delivery cord: 3 umbilical vessels Delivery laceration: other (periurethral) Delivery repair: vicryl Anesthesia: none Delivery comments: Viable female delivered over intact perineum with rupture at time of delivery. Weight 7 pounds 7 ounces 3373 g at 7:45 AM. Placenta delivered at 749 spontaneously and intact. had spontaneous cry was placed maternal abdomen. Cord was clamped and cut and she was handed to the waiting NICU personnel. Small laceration was repaired with 2-0 Vicryl. There was excellent hemostasis. Patient tolerated procedure well. - Infant A at 1 minute: 8 at 5 minutes: 9 Gender: Female
[2021-01-29] MEDS ORDERED: OXYTOCIN 10 UNIT/1 ML INJ ONE (08:28)
[2021-01-29] MEDS ORDERED: OXYTOCIN 10 UNIT/1 ML INJ IM SCH (08:30)
[2021-01-29] MEDS ORDERED: PRENATAL VIT27-FE FUMARATE-FOLIC ACID VIT TAB PO SCH (12:00)
[2021-01-29] MEDS ORDERED: PROMETHAZINE 25 MG TAB PO PRN (12:00)
[2021-01-29] MEDS ORDERED: DOCUSATE SODIUM 100 MG CAP PO SCH (12:00)
[2021-01-29] MEDS ORDERED: PROMETHAZINE 25 MG RECT SUPP PR PRN (12:00)
[2021-01-29] MEDS ORDERED: LANOLIN/ZINC/DIMETHICONE (LANSINOH) 7 GM TP PRN (12:00)
[2021-01-29] MEDS ORDERED: HYDROcodone/ACETAMINOPHEN 5-325 MG TAB PO PRN (12:00)
[2021-01-29] MEDS ORDERED: WITCH HAZEL/ GLYCERIN PAD TP PRN (12:00)
[2021-01-29] MEDS ORDERED: diphenhydrAMINE 25 MG CAP PO PRN (12:00)
[2021-01-29 14:10] LABS: Hematocrit 26.2 % (30.3-42.9); Hemoglobin 9.1 gm/dl (10.1-14.3)
--- NOTE | 2021-01-29 16:06 | Post Anesthesia Evaluation ---
- Post Anesthesia Evaluation Patient Participated: Yes Airway Patent: Yes Stable Respiratory Function: Yes Nausea/Vomiting: No Temp > 96.8F: Yes Pain Manageable: Yes Adequeate Hydration: Yes Anesthesia Complications: No Block Receding Appropriately: Yes Patient on Ventilator: No
[2021-01-29] MEDS: IBUPROFEN 600 MG TAB PO SCH ×2 (18:26→23:52)
[2021-01-29 20:47] LABS: Hematocrit 25.6 % (30.3-42.9); Hemoglobin 8.9 gm/dl (10.1-14.3)
[2021-01-29] MEDS ORDERED: FERROUS SULFATE 325 MG TAB PO SCH (22:00)
[2021-01-29] MEDS ORDERED: MAGNESIUM HYDROXIDE (MOM) ORAL LIQD UDC PO PRN (22:00)
--- NOTE | 2021-01-30 02:48 | Progress Note ---
Assessment and Plan PPD 1 s/p . Doing well. Pt doing well. Plan for discharge on today. Subjective - Subjective Date of service: 01/30/21 Interval history: Patient is a 25-year-old 2 para 1 who presents with a complaint of bleeding at 39-5/7 weeks. She entered care with just few months of care at 11 weeks and 6 days however she did have some sent lapse in care due to family issues however her course has been overall uncomplicated. She is GBS negative all of her labs are negative as well she is rubella immune. Patient reports: appetite normal, voiding normally, pain well controlled, ambulating normally : doing well Objective - Vital Signs Latest vital signs: Vital Signs Temp Pulse Resp BP BP Pulse Ox 01/29/21 23:52 20 01/29/21 16:30 97.6 F 60 17 97/49 97 01/29/21 10:38 97.9 F 72 20 122/66 100 01/29/21 10:20 77 99 01/29/21 10:15 82 99 01/29/21 10:13 67 124/74 93 01/29/21 10:10 62 100 01/29/21 10:05 67 100 01/29/21 10:00 54 L 100 01/29/21 09:59 53 L 129/82 93 01/29/21 09:55 59 L 100 01/29/21 09:50 59 L 100 01/29/21 09:45 68 100 01/29/21 09:43 60 124/68 01/29/21 09:40 68 100 01/29/21 09:35 59 L 100 01/29/21 09:30 53 L 100 01/29/21 09:28 55 L 132/83 01/29/21 09:26 52 L 93 01/29/21 09:25 56 L 99 01/29/21 09:20 56 L 99 01/29/21 09:15 61 100 01/29/21 09:13 68 129/84 01/29/21 09:10 63 100 01/29/21 09:05 54 L 100 01/29/21 09:00 62 100 01/29/21 08:58 61 123/82 01/29/21 08:55 59 L 99 01/29/21 08:50 60 100 01/29/21 08:45 57 L 100 01/29/21 08:43 55 L 121/81 01/29/21 08:40 59 L 100 01/29/21 08:35 59 L 100 01/29/21 08:30 65 100 01/29/21 08:28 63 117/76 01/29/21 08:25 69 100 01/29/21 08:20 68 100 01/29/21 08:15 70 100 01/29/21 08:13 71 112/72 01/29/21 08:10 70 100 01/29/21 08:06 69 112/68 01/29/21 08:05 69 100 01/29/21 08:00 71 100 01/29/21 07:58 67 119/71 01/29/21 07:55 63 100 01/29/21 07:50 67 100 01/29/21 07:49 97.6 F 01/29/21 07:45 98 H 98 01/29/21 07:43 93 H 118/65 01/29/21 07:40 68 100 01/29/21 07:35 75 100 01/29/21 07:31 62 108/66 01/29/21 07:30 63 83/50 100 01/29/21 07:25 70 99 01/29/21 07:20 58 L 100 01/29/21 07:15 70 107/71 100 01/29/21 07:10 61 100 01/29/21 07:05 64 98 01/29/21 07:00 72 100 01/29/21 06:59 60 103/60 01/29/21 06:55 60 99 01/29/21 06:50 70 99 01/29/21 06:49 61 102/57 01/29/21 06:45 67 100 01/29/21 06:44 72 94/53 01/29/21 06:40 70 100 01/29/21 06:35 66 100 01/29/21 06:30 75 107/70 100 01/29/21 06:25 66 100 01/29/21 06:20 67 100 01/29/21 06:15 74 100 01/29/21 06:13 60 110/60 01/29/21 06:10 63 99 01/29/21 06:05 60 99 01/29/21 06:00 61 99 01/29/21 05:59 60 120/71 01/29/21 05:55 64 99 01/29/21 05:50 64 99 01/29/21 05:45 61 100 01/29/21 05:44 63 99/56 01/29/21 05:40 60 100 01/29/21 05:35 68 99 01/29/21 05:30 59 L 100 01/29/21 05:28 73 90/54 01/29/21 05:25 68 99 01/29/21 05:20 63 99 01/29/21 05:15 72 99 01/29/21 05:13 68 95/51 01/29/21 05:10 60 99 01/29/21 05:05 71 100 01/29/21 05:00 69 99/55 98 01/29/21 04:55 65 97 01/29/21 04:50 69 98 01/29/21 04:45 67 98 01/29/21 04:44 65 99/56 01/29/21 04:40 71 98 01/29/21 04:35 67 98 01/29/21 04:30 65 98 01/29/21 04:28 61 95/54 01/29/21 04:25 68 98 01/29/21 04:20 65 98 01/29/21 04:15 73 98 01/29/21 04:13 62 94/52 94 01/29/21 04:10 68 98 01/29/21 04:05 62 97 01/29/21 04:00 68 97 01/29/21 03:59 65 111/57 01/29/21 03:55 62 97 01/29/21 03:50 66 97 01/29/21 03:45 58 L 98 01/29/21 03:44 57 L 98/53 01/29/21 03:40 57 L 98 01/29/21 03:35 59 L 99 01/29/21 03:30 56 L 99 01/29/21 03:28 54 L 104/55 01/29/21 03:25 56 L 100 01/29/21 03:20 73 100 01/29/21 03:15 78 100 01/29/21 03:14 61 107/61 01/29/21 03:10 64 99 01/29/21 03:05 74 100 01/29/21 03:00 63 99 01/29/21 02:58 67 110/68 01/29/21 02:55 64 100 01/29/21 02:50 70 99 01/29/21 02:45 78 99 Intake and Output 01/29/21 01/29/21 01/30/21 14:59 22:59 06:59 Intake Total 9.033 Output Total 1600 600 Balance -1590.967 -600 Intake: IV 9.033 PITOCin/NS 30 UNIT/500ML 9.033 30 units In 500 ml @ 2 mls/hr IV TITR DAMON Rx#: [id number] Output: Urine 1600 600 Indwelling Catheter 900 600 Void 700 Other: Total, Output Amount 700 600 Estimated Blood Loss 250 - Exam Breasts: Present: deferred Cardiovascular: Present: Regular rate, Normal S1, Normal S2 Lungs: Present: Clear to auscultation, Normal air movement Abdomen: Present: normal appearance, soft, normal bowel sounds Vulva: both: normal Uterus: Present: normal, firm Extremities: Present: normal - Labs Labs: Abnormal lab results 01/29/21 01/29/21 Range/Units 13:18 20:13 Hgb 9.1 L 8.9 L (10.1-14.3) gm/dl Hct 26.2 L 25.6 L (30.3-42.9) %
--- NOTE | 2021-01-30 02:50 | Discharge Summary ---
Providers - Providers Date of Admission: 01/28/21 20:07 Date of discharge: 01/30/21 Attending physician: LENNY CHAMPAGNE Primary care physician: LENNY CHAMPAGNE Hospitalization Reason for admission: induction of labor Delivery: Episiotomy: none Laceration: vaginal side wall Other procedures: none complications: none Discharge diagnosis: IUP at term delivered [place] baby: female Hospital course: unremarkable Condition at discharge: Good Disposition: DC-01 TO HOME OR SELFCARE Plan - Discharge Medications Prescriptions: Ibuprofen [Motrin] 800 mg PO Q8HR PRN #40 tablet PRN Reason: Pain, Mild (1-3) HYDROcodone/APAP 5-325 [[place] 5/325] 1 each PO Q6HR PRN #15 tablet PRN Reason: Pain - Provider Discharge Summary Activity: routine, no sex for 6 weeks, no heavy lifting 4 weeks, no strenuous exercise Diet: routine Instructions: routine Additional instructions: [] Smoking cessation referral if applicable(refer to patient education folder for contact #) [] Refer to [facility]'s [facility] Booklet Call your doctor immediately for: * Fever > 100.5 * Heavy vaginal bleeding ( >1 pad per hour) * Severe persistent headache * Shortness of breath * Reddened, hot, painful area to leg or breast * Drainage or odor from incision. * Keep incision clean and dry at all times and follow doctor's instructions regarding bathing/showering - Follow up plan Follow up: LENNY CHAMPAGNE MD [Primary Care Provider] - 6 Weeks
[2021-01-30] MEDS: IBUPROFEN 600 MG TAB PO SCH (05:34)
[2021-01-30 15:25] VITALS: BP 99/66
== END 2021-01-30 15:15 | disposition home or self-care (01) | DRG 775 ==
LOC: TRG 18:30 → LD 20:07 → OBSVTOIN 20:07 → APU 20:08 → OB 01-29 10:59
PROVIDERS: ADMIT Obstetrics & Gynecology; ATTEND Obstetrics & Gynecology
PROC: 10E0XZZ Delivery of Products of Conception, External Approach (ICD-10-PCS; principal; 2021-01-29)
PROC: 0UQGXZZ Repair Vagina, External Approach (ICD-10-PCS; 2021-01-29)
DX: O99.62 Diseases of the digestive system complicating childbirth (principal); K21.9 Gastro-esophageal reflux disease without esophagitis; Z20.822 Contact with and (suspected) exposure to COVID-19; B06.89 Other rubella complications; O71.4 Obstetric high vaginal laceration alone; Z37.0 Single live birth; Z3A.39 39 weeks gestation of pregnancy; Z79.899 Other long term (current) drug therapy
CPT/HCPCS: 36415; 85014; 85018; 85027; 86592; 86593; 86780; 86850; 86900; 86901; G0378; J2590; J7120; U0003

== ENCOUNTER 2021-03-24 20:59 | Emergency (ER) | payer MEDICAID ==
[2021-03-24 22:43] VITALS: BP 130/69
== END 2021-03-25 07:18 ==
LOC: ED 20:59
DX: N89.8 Other specified noninflammatory disorders of vagina (principal); Z53.21 Procedure and treatment not carried out due to patient leaving prior to being seen by health care provider

== ENCOUNTER 2022-04-20 19:11 | Emergency (ER) | payer MEDICAID ==
[2022-04-20 20:13] VITALS: BP 124/73
[2022-04-21 10:14] LABS: HCG Qualitative,Urine Negative (Negative)
[2022-04-21 10:38] LABS: Bilirubin,Urine Negative (Negative); Blood,Urine Negative (Negative); Color,Urine Amber (Yellow)
[2022-04-21 10:47] LABS: Mucus,Urine 3+ /HPF; WBC,Urine > 182.0 /HPF (0.0-6.0)
[2022-04-21] MEDS ORDERED: LIDOCAINE-MPF (1%) 10 MG/1 ML VIAL 5 ML INFILTRATI ONE (10:49)
--- NOTE | 2022-04-21 10:54 | Emergency Department Report ---
ED Female HPI - General Chief complaint: Urogenital-Female Stated complaint: IRRITATION RT SIDE OF VAGINA Time Seen by Provider: 04/21/22 08:55 Source: patient Mode of arrival: Ambulatory Limitations: No Limitations - History of Present Illness Initial comments: 26-year-old black female with no past medical history presents to the emergency department for evaluation of 2-day history of vaginal irritation and vaginal discharge. She denies dysuria, fever, abdominal pain. She states that she has been having sex but mostly protected with just a few occasions of unprotected sex. MD Complaint: vaginal discharge, other (Vaginal irritation) -: Gradual, days(s) (2.) Severity scale (0 -10): 0 Are you Now?: No Associated Symptoms: vaginal discharge. denies: vaginal bleeding, abdominal pain, nausea/vomiting, fever/chills, headaches, loss of appetite, dysuria, hematuria, rash, shortness of breath, syncope, weakness - Related Data Sexually active: Yes Home Medications Medication Instructions Recorded Confirmed Last Taken Pnv 29-1 Tablet 1 tab PO DAILY 01/16/18 01/29/21 1 Week Ago ~01/09/18 Previous Rx's Medication Instructions Recorded Last Taken Type Docusate Sodium [Colace] 100 mg PO BID PRN #60 capsule 01/18/18 Unknown Rx Ferrous Sulfate [Feosol 325 MG tab] 325 mg PO BID #60 tablet 01/18/18 Unknown Rx HYDROcodone/ACETAMINOPHEN [[place] 1 each PO Q6H #40 tablet 01/18/18 Unknown Rx 5-325 Tablet] Ibuprofen [Motrin] 600 mg PO Q8H PRN #40 tablet 01/18/18 Unknown Rx metroNIDAZOLE [Flagyl] 500 mg PO Q12HR 10 Days #20 tab 03/25/19 Unknown Rx Acetaminophen [Acetaminophen 8 650 mg PO Q8H PRN #12 tablet.er 07/01/20 Unknown Rx Hour] HYDROcodone/APAP 5-325 [[place] 1 each PO Q6HR PRN #15 tablet 01/29/21 Unknown Rx 5/325] Ibuprofen [Motrin] 800 mg PO Q8HR PRN #40 tablet 01/29/21 Unknown Rx DOXYCYCLINE Hyclate [Vibramycin] 100 mg PO BID 7 Days #14 capsule 04/21/22 Unknown Rx metroNIDAZOLE [Flagyl] 500 mg PO BID 7 Days #14 tab 04/21/22 Unknown Rx Allergies Allergy/AdvReac Type Severity Reaction Status Date / Time No Known Allergies Allergy Verified 04/20/22 20:13 ED Review of Systems ROS: Stated complaint: IRRITATION RT SIDE OF VAGINA Other details as noted in HPI Comment: All other systems reviewed and negative Constitutional: denies: chills, diaphoresis, fever, malaise, weakness Eyes: denies: eye pain ENT: denies: ear pain, dental pain, congestion Respiratory: denies: cough, shortness of breath Cardiovascular: denies: chest pain, palpitations Gastrointestinal: denies: abdominal pain, nausea, vomiting Genitourinary: discharge. denies: urgency, dysuria, frequency, hematuria Musculoskeletal: denies: back pain Skin: denies: rash, lesions Neurological: denies: headache, weakness ED Past Medical Hx - Past Medical History Hx Hypertension: No Hx Heart Attack/AMI: No Hx Congestive Heart Failure: No Hx Diabetes: No Hx Deep Vein Thrombosis: No Hx Liver Disease: No Hx Renal Disease: No Hx Sickle Cell Disease: No Hx Seizures: No Hx Asthma: No Hx COPD: No Hx HIV: No - Surgical History Hx Pacemaker: No Hx Internal Defibrillator: No - Social History Smoking Status: Never Smoker - Medications Home Medications: Home Medications Medication Instructions Recorded Confirmed Last Taken Type Pnv 29-1 Tablet 1 tab PO DAILY 01/16/18 01/29/21 1 Week Ago History ~01/09/18 Docusate Sodium [Colace] 100 mg PO BID PRN #60 capsule 01/18/18 01/29/21 Unknown Rx Ferrous Sulfate [Feosol 325 MG tab] 325 mg PO BID #60 tablet 01/18/18 01/29/21 Unknown Rx HYDROcodone/ACETAMINOPHEN [[place] 1 each PO Q6H #40 tablet 01/18/18 01/29/21 Unknown Rx 5-325 Tablet] Ibuprofen [Motrin] 600 mg PO Q8H PRN #40 tablet 01/18/18 01/29/21 Unknown Rx metroNIDAZOLE [Flagyl] 500 mg PO Q12HR 10 Days #20 tab 03/25/19 01/29/21 Unknown Rx Acetaminophen [Acetaminophen 8 650 mg PO Q8H PRN #12 tablet.er 07/01/20 01/29/21 Unknown Rx Hour] HYDROcodone/APAP 5-325 [[place] 1 each PO Q6HR PRN #15 tablet 01/29/21 Unknown Rx 5/325] Ibuprofen [Motrin] 800 mg PO Q8HR PRN #40 tablet 01/29/21 Unknown Rx DOXYCYCLINE Hyclate [Vibramycin] 100 mg PO BID 7 Days #14 capsule 04/21/22 Unknown Rx metroNIDAZOLE [Flagyl] 500 mg PO BID 7 Days #14 tab 04/21/22 Unknown Rx ED Physical Exam - General Limitations: No Limitations General appearance: alert, in no apparent distress - Head Head exam: Present: atraumatic, normocephalic - Eye Eye exam: Present: normal appearance. Absent: scleral icterus, conjunctival injection, periorbital swelling, periorbital tenderness - ENT ENT exam: Present: normal exam - Neck Neck exam: Present: normal inspection. Absent: tenderness, lymphadenopathy - Respiratory Respiratory exam: Present: normal lung sounds bilaterally. Absent: respiratory distress, wheezes, rales, rhonchi, stridor, chest wall tenderness - Cardiovascular Cardiovascular Exam: Present: regular rate, normal heart sounds - GI/Abdominal GI/Abdominal exam: Present: soft, normal bowel sounds. Absent: distended, tenderness, guarding, rebound, rigid - External exam: Present: erythema - Extremities Exam Extremities exam: Present: normal inspection, normal capillary refill. Absent: pedal edema, joint swelling, calf tenderness - Back Exam Back exam: Present: normal inspection. Absent: CVA tenderness (R), CVA tenderness (L), vertebral tenderness - Neurological Exam Neurological exam: Present: alert, oriented X3, CN II-XII intact, normal gait - Psychiatric Psychiatric exam: Present: normal affect, normal mood - Skin Skin exam: Present: warm, dry, intact, normal color ED Course Vital Signs 04/20/22 04/21/22 20:12 11:17 Temperature 97.0 F L Pulse Rate 86 86 Respiratory 18 18 Rate Blood Pressure 124/73 124/73 [Left] O2 Sat by Pulse 97 97 Oximetry ED Medical Decision Making - Medical Decision Making 26-year-old black female with no past medical history presents to the emergency department for evaluation of 2-day history of vaginal irritation and vaginal discharge. She denies dysuria, fever, abdominal pain. She states that she has been having sex but mostly protected with just a few occasions of unprotected sex. Wet prep positive for trichomonas and BV. Patient treated empirically for gonorrhea and chlamydia with Rocephin 500 mg IM and will be discharged home with 7-day course of doxycycline along with Flagyl twice a day for 7 days. She is advised to use safe sex, have partner examined and treated, and follow-up with primary care provider within [facility] for further evaluation and management. She is advised to return to the emergency department as needed. She verbalizes understanding of and agreement with plan of care. Critical care attestation.: If time is entered above; I have spent that time in minutes in the direct care o f this critically ill patient, excluding procedure time. ED Disposition Clinical Impression: Vaginal discharge, Trichimoniasis, Bacterial vaginosis Disposition: HOME / SELF CARE / HOMELESS Is pt being admited?: No Does the pt Need Aspirin: No Condition: Stable Instructions: Vaginitis, [id number], Bacterial Vaginosis, [id number], Trichomoniasis, Bacterial Vaginosis (ED) Additional Instructions: Take medications as prescribed. Practice safe sex. Have your partner evaluated and treated. Follow-up with the health department for further evaluation and management. Return to the emergency department as needed. Prescriptions: metroNIDAZOLE [Flagyl] 500 mg PO BID 7 Days #14 tab DOXYCYCLINE Hyclate [Vibramycin] 100 mg PO BID 7 Days #14 capsule Referrals: KAITLIN HICKMAN MD [Primary Care Provider] - 3-5 Days [facility] [Outside] - 3-5 Days Forms: STI Treatment and Prevention Time of Disposition: 10:53
== END 2022-04-21 11:18 | disposition home or self-care (01) ==
LOC: ED 19:11
DX: N89.8 Other specified noninflammatory disorders of vagina (principal)
CPT/HCPCS: 81001; 81025; 87210; 87591; 96372; 99283; J0696; J3490